=== PATIENT | female | born 1990 | race Caucasian/White ===

== ENCOUNTER 2023-08-03 10:42 | Outpatient (RCR) | payer OTHER, SELFPAY ==
[2023-08-03 11:43] VITALS: PULSE 84
== END 2023-11-01 23:59 | disposition home or self-care (01) ==
LOC: ANHOBOP 10:42
PROVIDERS: PCP Family Medicine; Visit Provider Obstetrics & Gynecology
DX: O36.8130 Decreased fetal movements, third trimester, not applicable or unspecified (principal); Z3A.36 36 weeks gestation of pregnancy
CPT/HCPCS: 59025

== ENCOUNTER 2023-08-09 05:25 | Inpatient (IN) | payer OTHER, SELFPAY ==
[2023-08-09] VITALS (155 sets, daily range): BP systolic 65–147; BP diastolic 33–99; PULSE 52–127; RESP 18; TEMP 36.1–36.9; O2SAT 93–100; BMI 53.9
[2023-08-09 06:12] LABS: Basophils Percent Auto 0.3 % (0.2-1.2); Eosinophils Absolute Auto 0.1 K/mm3 (0-0.3); Eosinophils Percent Auto 0.7 % (0-4.4); Hematocrit 40.8 % (37.0-47.0); Hemoglobin 13.2 g/dL (12.0-15.0); Immature Granulocyte Absolute 0.11 K/mm3 (0.00-0.031); Immature Granulocyte Percent A 0.9 % (0-0.5); Lymphocytes Absolute Auto 2.58 K/mm3 (0.9-3.2); Lymphocytes Percent Auto 20.5 % (18.3-44.2); Mean Corpuscular HGB Conc 32.4 g/dl (32-36); Mean Corpuscular Hemoglobin 29.9 pg (26-34); Mean Corpuscular Volume 92.5 fl (80-100); Mean Platelet Volume 10.8 fl (7.4-10.4); Monocytes Percent Auto 7.8 % (2.6-8.5); Neutrophils Absolute Auto 8.8 K/mm3 (1.3-6.7); Neutrophils Percent Auto 69.8 % (45.5-73.1); Platelet Count Result 250 k/mm3 (150-375); Red Blood Count 4.41 M/mm3 (4.2-5.4); Red Cell Distribution Width 14.3 % (11.5-14.5); White Blood Count 12.6 K/mm3 (4.5-10.0)
--- NOTE | 2023-08-09 06:20 | LDADM ---
This patient, Sera Euceda, was admitted to Labor/Delivery/Recovery 102 on 08/09/23 at 05:25. Plans for labor, pain management and were discussed with patient. Patient/family oriented to hospital policies and general routines including ID bracelet, bed and alarms, visiting hours, pain management, procedures, bathroom and other care routines, personal items, smoking policy, room service/diet and guest tray routines, security routines, and visiting hours. Patient/Family are encouraged to report perceived risks to care and to ask questions if they do not understand what they are told or what they should do. See OBIX for further documentation.
[2023-08-09] MEDS: AMPICILLIN 2 GM/NS 100 ML 2 GM/100 ML BAG IVPB (06:25)
[2023-08-09] MEDS: LACTATED RINGERS 1,000 ML 125 ML IV CONT ×3 (06:25→13:59)
[2023-08-09] MEDS: OXYTOCIN 30 UNITS/NS 500 ML 30 UNITS/500 ML BAG IV CONT (06:25)
[2023-08-09] MEDS: fentaNYL CITRATE INJ (*CRX) 100 MCG/2 ML VIAL 50 MCG IV PUSH (06:41)
--- NOTE | 2023-08-09 06:50 | PM.IMHP ---
H&P: HPI History of Present Illness Date/Time: 08/09/23 06:50 Chief Complaint: Her /hypertension /metabolic disorder Narrative: since 33-year-old 6 para 2 last menstrual period was November 1208/2022, EDC is 08/27/2023, confirmed OLIVERIO early visit who presents for induction of labor secondary to elevated blood pressures. has been complicated by history of 3 losses. She had 2 spontaneous vaginal deliveries. She takes levothyroxine baby aspirin and metformin. She passed her diabetic test but I would consider her a type 2 diabetic with metabolic syndrome secondary to PCOS. The pressures were elevated and she had been followed by Maternal- Medicine who felt she should be delivered in the 37th week. She is positive for group B strep Meds Home Medications and Allergies Home Medications Medication Instructions Recorded Confirmed Type levothyroxine 50 mcg tablet 50 mcg PO DAILY 08/03/23 08/09/23 History metformin 1,000 mg tablet 500 mg PO BID 08/03/23 08/09/23 History prenat.vits,amanda,[id number] 1 tablet PO DAILY 08/03/23 08/09/23 History Allergies Allergy/AdvReac Type Severity Reaction Status Date / Time No Known Allergies Allergy Verified 08/03/23 11:11 Vital Signs Vital Signs - 24 hr 08/09/23 05:47 08/09/23 05:48 08/09/23 06:07 Pulse Rate 127 H 106 H 112 H Blood Pressure 85/33 L 107/60 124/57 L Pulse Oximetry Oxygen Delivery 08/09/23 06:31 08/09/23 06:43 08/09/23 06:48 Pulse Rate 110 H Blood Pressure 118/90 Pulse Oximetry 96 99 Oxygen Delivery 08/09/23 06:18 Pulse Rate Blood Pressure Pulse Oximetry Oxygen Delivery Room Air Exam Const: General: cooperative, healthy appearing and comfortable Nutritional Appearance: obese Orientation/consciousness: oriented to person, oriented to place and oriented to time HENMT: Head: normal to inspection Chest: Chest palpation & inspection: normal inspection of the chest Resp: Effort & Inspection: normal respiratory effort Cardio: Rate: regular rate Rhythm: regular rhythm Heart sounds: S1 normal heart sound present and S2 normal heart sound present GI: Inspection: normal to inspection ( soft gravid uterus) and obesity : External Female Exam: normal external appearance Speculum Exam - Vagina: normal appearance of the vagina Speculum Exam - Cervix: normal appearance of the cervix ( cervix 2/50/2. Attempted a round but difficult secondary to patient inabi) and Other cervical findings present ( heart tones reassuring. Exam is difficult secondary to patient's d) H&P: Results Labs Labs: Short CBC 08/09/23 Range/Units 05:43 WBC 12.6 H (4.5-10.0) K/mm3 Hgb 13.2 (12.0-15.0) g/dL Hct 40.8 (37.0-47.0) % Plt Count 250 (150-375) k/mm3 Assessment and Plan Assessment and plan (1) Term : Code(s): Z34.90 - Encounter for supervision of normal , unspecified, unspecified trimester Status: Acute (2) Hypertension: Code(s): I10 - Essential (primary) hypertension Status: Acute (3) Metabolic disorder: Code(s): E88.9 - Metabolic disorder, unspecified Status: Acute Plan medical induction labor. Spontaneous vaginal delivery is expected. She has an epidural candidate
[2023-08-09 07:01] LABS: HIV 1/2 Ab P24 Ag Result Negative (Negative)
[2023-08-09] MEDS: fentaNYL CITRATE INJ (*CRX) 100 MCG/2 ML VIAL IV PUSH (08:28)
--- NOTE | 2023-08-09 09:26 | PM.OBPNLAB ---
Pain Control Date/time seen: 08/09/23 09:26 Pain control: tolerating well and epidural Pelvic Exam Dilation (cm): 4 Effacement (%): 75 station: -2 Amniotic membrane status: Leaking Contractions Monitor mode: Internal
[2023-08-09 09:32] LABS: Glucose Point of Care 116 mg/dl (65-105)
[2023-08-09] MEDS: AMPICILLIN 1 GM/NS 50 ML 1 GM/50 ML BAG IVPB (10:35)
--- NOTE | 2023-08-09 12:00 | PM.OBPNLAB ---
Pain Control Date/time seen: 08/09/23 12:00 Pain control: tolerating well and epidural Pelvic Exam Dilation (cm): 4 Effacement (%): 75 station: -2 Amniotic membrane status: Leaking Contractions Monitor mode: Internal
[2023-08-09 13:38] LABS: Glucose Point of Care 77 mg/dl (65-105)
--- NOTE | 2023-08-09 15:45 | PM.OBPRVD ---
OB - Vaginal Delivery Note Procedure Delivery date: 08/09/23 Events: Chronic Hypertension and Positive Group B Strep (GBS) Induction method: AROM Delivery augmentation: Pitocin Delivery monitor: External FHT and Internal Uterine Route of delivery: Episiotomy description: None Laceration Description: None Specimen: No Quantitative Blood Loss (ml): 161 Anesthesia type: Epidural Disposition: Floor Complications: No immediate complications Baby Date of : 08/09/23 Time of : 15:34 Weeks of gestation at delivery: 37 Infant gender: Male presentation: vertex position: Right Occiput Anterior Placenta delivery description: Spontaneous Cord Vessel Description: 3 Vessels and Delayed Cord Clamping score one minute: 8 score five minutes: 9 Narrative: amp x 2 for gbs
--- NOTE | 2023-08-09 15:48 | PM.DS ---
DS: Admitting Diagnosis Discharge Date 08/11/2023 Admitting Diagnosis Term / chronic hypertension/ group B strep DS: Discharge Diagnosis Discharge Diagnosis (1) Metabolic disorder: Code(s): E88.9 - Metabolic disorder, unspecified Status: Acute (2) Hypertension: Code(s): I10 - Essential (primary) hypertension Status: Acute (3) Term : Code(s): Z34.90 - Encounter for supervision of normal , unspecified, unspecified trimester Status: Acute DS: Summary Hospital Course Reason for hospitalization: patient was admitted for induction of labor at 37 and half weeks gestation secondary to elevated blood pressures Hospital Course: patient's hospital course unremarkable. She remained afebrile. She was up, voiding without difficulty, eating regular diet, ambulating, generally without complaints. Time Spent with Patient Time attestation: Total time spent providing and/or coordinating discharge services: Exam Const: General: cooperative, healthy appearing and comfortable Orientation/consciousness: oriented to place and oriented to time HENMT: Head: normal to inspection Resp: Effort & Inspection: normal respiratory effort Cardio: Rate: regular rate Rhythm: regular rhythm Heart sounds: S1 normal heart sound present and S2 normal heart sound present GI: Inspection: normal to inspection ( Uterus below the umbilicus) DS: Data Data Completed and Pending Labs on day of discharge: Labs from last 24 hours 08/09/23 08/09/23 08/09/23 13:36 09:29 05:43 WBC 12.6 H RBC 4.41 Hgb 13.2 Hct 40.8 MCV 92.5 MCH 29.9 MCHC 32.4 RDW 14.3 Plt Count 250 MPV 10.8 H Immature Gran % (Auto) 0.9 H Neut % (Auto) 69.8 Lymph % (Auto) 20.5 [place] % (Auto) 7.8 Eos % (Auto) 0.7 Baso % (Auto) 0.3 Lymph # (Auto) 2.58 [place] # (Auto) 1.0 H Eos # (Auto) 0.1 Baso # (Auto) 0.0 Abs Immat Gran (auto) 0.11 H Absolute Neuts (auto) 8.8 H Absolute Nucleated RBC 0.0 Nucleated RBC % 0.0 POC Capillary Glucose 77 116 H RPR Pending HIV 1&2 Ab/P24 Ag 4thGn Negative Blood Type O Positive Antibody Screen Negative Discharge Plan Discharge Attending physician on discharge: Kameron Yang Discharging Clinician: Kameron Yang Patient Disposition: Home, Self-Care Activity: may shower and pelvic rest Diet: heart healthy Wound Care Instructions: follow printed instructions Patient Instructions: Antibiotic Form Stand Alone Forms: General Discharge Information Follow-up/Referrals: Kameron Yang MD [Physician] - Discharge Medications: New hydrocodone-acetaminophen 5-325 mg tablet 1 tablet PO Q4H PRN (Reason: pain) Qty: 14 0RF Continued levothyroxine [Levothroid] 50 mcg Tablet 50 mcg PO DAILY metformin 1,000 mg Tablet 500 mg PO BID Vitamin Tablet 1 tablet PO DAILY Date of admission: 08/09/23 05:25 Primary Care Provider: Dennys,Yosi Lewis Admitting Provider: Kameron Yang Attending physician on admission: Kameron Yang Condition: Stable
[2023-08-09 15:56] LABS: Rapid Plasma Reagin Non-Reactive (NonReactive)
[2023-08-09] MEDS: OXYTOCIN 30 UNITS/NS 500 ML 30 UNITS/500 ML BAG 125 UNITS IV CONT (16:09)
[2023-08-09] MEDS: IBUPROFEN 600 MG TABLET PO (20:10)
[2023-08-09] MEDS: ACETAMINOPHEN 325 MG TABLET 650 MG PO (20:10)
[2023-08-09] MEDS: HYDROcodone/acetaminophen (*CRX) 5-325 MG TABLET 1 TAB PO (21:28)
[2023-08-10] MEDS: HYDROcodone/acetaminophen (*CRX) 5-325 MG TABLET 1 TAB PO ×4 (05:56→21:27)
[2023-08-10] MEDS: IBUPROFEN 600 MG TABLET PO ×3 (05:58→21:28)
[2023-08-10] MEDS: LEVOTHYROXINE SODIUM 50 MCG TABLET PO (05:58)
[2023-08-10 06:00] VITALS: BP 127/91; PULSE 83; RESP 18; O2SAT 97
--- NOTE | 2023-08-10 06:08 | P.PNOB_ITS ---
OB - PN: Subj Subjective Date/time seen: 08/10/23 06:08 Patient comments: no complaints and pain well controlled baby status: doing well OB - PN: Obj Data Labs 08/09/23 05:43 Labs: Laboratory Results - last 24 hr 08/09/23 08/09/23 08/09/23 05:43 09:29 13:36 WBC 12.6 H RBC 4.41 Hgb 13.2 Hct 40.8 MCV 92.5 MCH 29.9 MCHC 32.4 RDW 14.3 Plt Count 250 MPV 10.8 H Immature Gran % (Auto) 0.9 H Neut % (Auto) 69.8 Lymph % (Auto) 20.5 [place] % (Auto) 7.8 Eos % (Auto) 0.7 Baso % (Auto) 0.3 Lymph # (Auto) 2.58 [place] # (Auto) 1.0 H Eos # (Auto) 0.1 Baso # (Auto) 0.0 Abs Immat Gran (auto) 0.11 H Absolute Neuts (auto) 8.8 H Absolute Nucleated RBC 0.0 Nucleated RBC % 0.0 POC Capillary Glucose 116 H 77 RPR Non-reactive HIV 1&2 Ab/P24 Ag 4thGn Negative Blood Type O Positive Antibody Screen Negative OB - PN A/P Plan day: 1 Plan: routine care Time Spent With Patient Time: Total time spent is greater than 50% in coordination of care (as documented) at patient's floor/unit and/or counseling patient: Time with patient: less than 15 minutes Exam Const: General: cooperative, healthy appearing and comfortable Orientation/consciousness: oriented to person, oriented to place and oriented to time HENMT: Head: normal to inspection Resp: Effort & Inspection: normal respiratory effort Cardio: Rate: regular rate Rhythm: regular rhythm Heart sounds: S1 normal heart sound present and S2 normal heart sound present GI: Inspection: normal to inspection and incision (cdi)
[2023-08-10 07:29] LABS: Hematocrit 40.6 % (37.0-47.0); Hemoglobin 13.1 g/dL (12.0-15.0)
[2023-08-10 07:35] VITALS: BP 86/51; PULSE 58; RESP 18; TEMP 36.7; O2SAT 98
--- NOTE | 2023-08-10 08:00 | PC.NURSE ---
Breast pump provided due to mother asking to pump and bottlefeed. Discussed that we normally like to intitiate pumping within the first 6 hours of and that we are well past that, she can pump but her milk supply maybe delayed due to a delay in the pumping, she verbalized understanding. Instructions given on cleaning, care, usage, that there should be no pain, pumping schedule for milk production, collection, and storage of human milk. Patient was assessed for correct placement, flange size, to pump for comfort and nipple stretching/stimulation for adequate milk production every 3 hours (8 times in 24 hours) 1-2 times at night. Parents are encouraged to record the pumping schedule on the feeding sheet.?Mother voiced understanding of the education shared along with mom/baby guide and the pump measurement, flange fit handout for additional resource information.
[2023-08-10] MEDS: MULTIVIT/MIN/PREN/FOL AC/IRON TABLET 1 TAB PO (08:57)
[2023-08-10] MEDS: metFORMIN HCL 500 MG TABLET PO ×2 (08:58→17:08)
[2023-08-10 12:45] VITALS: BP 117/76; PULSE 83; RESP 16; TEMP 36.6; O2SAT 97
--- NOTE | 2023-08-10 13:34 | WPDANLDPN2 ---
Anes-Prog Note L&D Date/Time: 08/10/23 13:34 Comfortable throughout: labor and delivery Neuraxial method: epidural Epidural/Spinal procedure site: clean & non-tender Neuro status: Neuro function grossly intact. Cardiovascular status: normal Respiratory status: normal Airway patency: baseline Mental status: baseline Post-Op hydration status: normal Vital Signs: Last Vital Signs Temp 98.1 F 08/10/23 07:35 Pulse 58 L 08/10/23 07:35 Resp 18 08/10/23 07:35 BP 86/51 L 08/10/23 07:35 Pulse Ox 98 08/10/23 07:35 O2 Del Method Room Air 08/10/23 09:00 Pain score (VAS): 0/10 I/O: Intake & Output 08/09/23 08/10/23 08/10/23 23:59 07:59 15:59 Intake Total 500 550 Output Total 770 Balance 500 -220 Post-procedural complaints: none Patient feedback: Patient satisfied with anesthetic care.
--- NOTE | 2023-08-10 16:00 | PC.NURSE ---
PT introductions made and plan of care discussed per post , pain management, breast pumping, bottle feeding, daily care activities. PT and spouse both recipients of such instructions and no barriers to learning identified at this time. PT received such instructions per one to one discussion, mom baby care guide and demonstrations. this shift. PT verbalized understanding of such instructions.
--- NOTE | 2023-08-10 16:28 | PC.NURSE ---
[id number] Report received from Primary RN that bottle feeding mother requested a consult. Introductions were made and mother discussed her plan to bottle feed her infant and she had considered pumping to bottle feed, however; it is time consuming and she has other children. Mother is bottle feeding now. Breast pump provided earlier by Primary RN due to mothers request. Instructions given on cleaning, care, usage, that there should be no pain, pumping schedule for milk production, collection, and storage of human milk. Patient was not assessed for correct placement, flange size, and RN LC recommended patient to call when she pumps for evaluation. Encouraged mother to pump for comfort with no pain and nipple stretching/stimulation for adequate milk production every 3 hours (8 times in 24 hours) 1-2 times at night. Mother states she has pumped 4 times today. Reviewed how to build a good milk supply, maintain supply, the risks and how to prevent and treat infections that may occur with or without consistent pumping. Resources given to mother on how to contact services. Mother voiced understanding of the education and is undecided.
[2023-08-10] MEDS: SIMETHICONE 80 MG TAB.CHEW PO (17:08)
[2023-08-10] MEDS: DOCUSATE SODIUM 100 MG CAPSULE PO (17:09)
[2023-08-10 21:30] VITALS: BP 120/78; PULSE 83; RESP 18; TEMP 36.8; O2SAT 97
[2023-08-11] MEDS: LEVOTHYROXINE SODIUM 50 MCG TABLET PO (06:47)
--- NOTE | 2023-08-11 06:49 | PM.OBPNVD ---
OB - PN: Subj Subjective Date/time seen: 08/11/23 06:49 Patient comments: no complaints and pain well controlled baby status: doing well and nursing well OB - PN: Obj Data Labs 08/10/23 07:23 Labs: Laboratory Results - last 24 hr 08/10/23 07:23 Hgb 13.1 Hct 40.6 OB - PN A/P Plan day: 2 Plan: routine care, discharge home and follow up 6 weeks Time Spent With Patient Time: Total time spent is greater than 50% in coordination of care (as documented) at patient's floor/unit and/or counseling patient: Time with patient: less than 15 minutes Exam Const: General: cooperative, healthy appearing and comfortable Nutritional Appearance: average body habitus Orientation/consciousness: oriented to person, oriented to place and oriented to time HENMT: Head: normal to inspection Resp: Effort & Inspection: normal respiratory effort Cardio: Rate: regular rate Rhythm: regular rhythm Heart sounds: S1 normal heart sound present and S2 normal heart sound present GI: Inspection: normal to inspection
[2023-08-11] MEDS: ACETAMINOPHEN 325 MG TABLET 650 MG PO (07:05)
[2023-08-11] MEDS: IBUPROFEN 600 MG TABLET PO (07:05)
[2023-08-11 07:40] VITALS: BP 116/65; PULSE 74; RESP 16; TEMP 36.8; O2SAT 98
[2023-08-11] MEDS: MULTIVIT/MIN/PREN/FOL AC/IRON TABLET 1 TAB PO (09:08)
[2023-08-11] MEDS: metFORMIN HCL 500 MG TABLET PO (09:08)
[2023-08-11] MEDS: DOCUSATE SODIUM 100 MG CAPSULE PO (09:08)
[2023-08-11] MEDS: HYDROcodone/acetaminophen (*CRX) 5-325 MG TABLET 1 TAB PO (10:20)
== END 2023-08-11 11:45 | disposition home or self-care (01) | DRG 560 ==
LOC: ANHLDR 15:50 → ANHOB2 19:03
PROVIDERS: Admitting Provider Obstetrics & Gynecology; PCP Family Medicine; Visit Provider Obstetrics & Gynecology
DX: O10.92 Unspecified pre-existing hypertension complicating childbirth (principal); Z37.0 Single live birth; Z3A.37 37 weeks gestation of pregnancy; O99.284 Endocrine, nutritional and metabolic diseases complicating childbirth; E88.9 Metabolic disorder, unspecified; O24.429 Gestational diabetes mellitus in childbirth, unspecified control; O99.824 Streptococcus B carrier state complicating childbirth
CPT/HCPCS: 36415; 82948; 85014; 85018; 85025; 86592; 86703; 86850; 86900; 86901; A9270; G0432; J0290; J2590; J2795; J3010; J7120

== ENCOUNTER 2024-05-11 03:02 | Day surgery (SDC) | payer OTHER, SELFPAY ==
[2024-05-09 14:39] VITALS: BMI 55.4
--- NOTE | 2024-05-09 14:45 | PC.NURSE ---
Report to the Outpatient Waiting Room, entrance under the green pavilion located off [facility], at time _1pm_ on date _[id number]_. Planned Procedure Time: _3pm_.? Time changes happen often and if your time is changed the preop area will call you the afternoon before. - You and your visitor will be asked to self-screen and do not enter if you have any COVID symptoms. Please call surgeon if you need to reschedule. - A mask is optional within the hospital at this time. Patients may have clear liquids (water, carbonated beverages, clear teas, apple juice) until 3 hours prior to surgery with a maximum of 20 ounces. - No food from midnight until time of surgery and no smoking Take only the following medications with a SIP of water on the morning of surgery: __Levothyroxine and Nifedipine____ DO NOT STOP ANY OF YOUR OTHER PRESCRIPTION MEDICATIONS PRIOR TO SURGERY EXCEPT THE FOLLOWING Medications to discontinue per physician __Prenatal vitamin____ Date to take last dose__Stop now__ Please no make-up, nail trinidadian, hairspray, perfume, deodorant, or body powder the day of surgery.? No jewelry (including any body piercings) or valuables the day of surgery, leave them at home.? Please take a shower or bath the night before, or the morning of, surgery with an antibacterial soap.? Wear comfortable, loose fitting clothing.? - Jewelry must be removed prior to entering the operating room.? Rings and piercings that are not removed may be cut off. - The hospital will not accept responsibility for valuables.? - Please leave all valuables, including medications, at home the day of surgery. If you are going home after surgery, a licensed log truck driver must drive you home.? - NO public transportation without another adult if you receive anesthesia. - We recommend that an adult stay with you for 24 hours following discharge. - We also recommend that you do not drive, make important decision, drink alcoholic beverages, or take any drugs that were not prescribed by your health care provider for at least 24 hours after your discharge time. Follow any additional instructions given to you from your surgeon. Telephone instructions given to __Sera__and asked if any additional questions and then verbalized understanding. Patient advised to call surgeon office or pre surgery nurse liaison [phone] if any additional questions.
--- NOTE | 2024-05-10 06:47 | PM.IMHP ---
H&P: HPI History of Present Illness Date/Time: 05/10/24 06:47 Chief Complaint: First trimester blighted ovum Narrative: 34-year-old multiparous patient with a blighted ovum. She has had multiple blighted ovum some testing done on the products of conception. She has had 2 term pregnancies which were unremarkable risks and benefits of suction D&C review [facility] Family History Family History Grandparent Prostate carcinoma Diabetes mellitus Hypertension Social History Social History Smoking status: Never smoker Living arrangements: with family Spiritual care concerns: No Meds Home Medications and Allergies Home Medications Medication Instructions Recorded Confirmed Type levothyroxine 50 mcg tablet 50 mcg PO DAILY 08/03/23 05/09/24 History prenat.vits,amanda,[id number] 1 tablet PO DAILY 08/03/23 05/09/24 History nifedipine 30 mg tablet,extended 30 mg PO DAILY 05/09/24 05/09/24 History release 24 hr Allergies Allergy/AdvReac Type Severity Reaction Status Date / Time No Known Allergies Allergy Verified 05/09/24 14:38 Exam Const: General: cooperative, healthy appearing, comfortable and overweight Orientation/consciousness: oriented to person, oriented to place and oriented to time HENMT: Head: normal to inspection Resp: Effort & Inspection: normal respiratory effort Cardio: Rate: regular rate Rhythm: regular rhythm Heart sounds: S1 normal heart sound present and S2 normal heart sound present GI: Inspection: normal to inspection : External Female Exam: normal external appearance Speculum Exam - Vagina: normal appearance of the vagina Speculum Exam - Cervix: normal appearance of the cervix and Cervical os closed Bimanual exam- vagina & uterus: enlarged Bimanual Exam- Adnexa, other: normal adnexae Assessment and Plan Assessment and plan (1) Missed : Code(s): O02.1 - Missed Status: Acute Assessment and Plan: Suction dilatation curettage
--- NOTE | 2024-05-11 06:52 | WPDHPUPDATE1 ---
History and Physical Update Update Date/Time: 05/11/24 06:52 History and Physical has been reviewed, including an updated exam of the patient. There are NO changes in the patient's condition. Risks, benefits, and alternatives have been discussed and questions answered. Patient agrees to proceed with procedure.
[2024-05-11 09:05] VITALS: BP 129/70; PULSE 67; RESP 20; TEMP 36.2; O2SAT 100
[2024-05-11] MEDS: LACTATED RINGERS 1,000 ML 30 ML IV CONT (09:50)
[2024-05-11 10:01] LABS: Hematocrit 41.2 % (37.0-47.0); Hemoglobin 13.6 g/dL (12.0-15.0)
--- NOTE | 2024-05-11 10:11 | P.PNAN_ITS ---
Anes - Initial Pre Proc Eval Procedure: Operation Date: 05/11/24 11:15 Proposed Procedures p Suction Dilation and Curettage - Kameron Vogel MD Date/Time: 05/11/24 10:11 Surgeon: Kameron Vogel MD Pre Op Diagnosis: missed Ab Patient Data Age: 34 Gender: F Height: 1.71 m Weight: 163 kg Allergies Allergy/AdvReac Type Severity Reaction Status Date / Time No Known Allergies Allergy Verified 05/11/24 09:40 Home Medications Medication Instructions Recorded Confirmed Type levothyroxine 50 mcg tablet 50 mcg PO DAILY 08/03/23 05/11/24 History prenat.vits,amanda,[id number] 1 tablet PO DAILY 08/03/23 05/11/24 History nifedipine 30 mg tablet,extended 30 mg PO DAILY 05/09/24 05/11/24 History release 24 hr hydrocodone 5 mg-acetaminophen 325 1 tablet PO Q4H PRN pain #14 tabs 05/11/24 Rx mg tablet Laboratory Tests 05/11/24 09:47 Hgb 13.6 g/dL (12.0-15.0) Hct 41.2 % (37.0-47.0) Patient hx anesthesia problems: none Family hx anesthesia problems: none Results Review: All pre-operative results and documents have been reviewed as part of the pre- operative evaluation. [facility] Past Medical History Medical History (Updated 05/11/24 @ 10:11 by Kameron Aguilar MD) Missed Morbid obesity Family History Family History Grandparent Prostate carcinoma Diabetes mellitus Hypertension Social History Social History Smoking status: Never smoker Living arrangements: with family Spiritual care concerns: No Anes - Eval Final PreProcedure Day of Procedure 05/11/24 10:11 Patient weight: super morbidly obese Heart: regular rate and rhythm Lungs: clear to auscultation Airway: Mallampati scale class III Neurological: alert and oriented Last oral intake: >/= 8 hours ASA classification: III Emergent: no Anesthetic plan: proceed Anesthesia type and monitoring: general GIVS and standard monitoring Results Review: All pre-operative results and documents have been reviewed as part of the pre- operative evaluation. Informed Consent: The patient's anesthetic plan and its attendant risks and benefits were discussed with the patient/family/POA. Questions were solicited and answers provided to the satisfaction of the patient/family/POA.
[2024-05-11] MEDS: ACETAMINOPHEN 500 MG TABLET 1000 MG PO (10:33)
[2024-05-11] MEDS: LIDOCAINE HCL 1% LOCAL INJ 20 ML VIAL 10 ML INFILTRATE (10:50)
--- NOTE | 2024-05-11 11:00 | P.OP_ITS ---
Procedure Note - Detailed Date of Procedure 05/11/24 Pre-op Diagnosis missed Ab Post-op Diagnosis Same Procedure Performed Suction dilatation curettage Surgeon Kameron Vogel MD Anesthesia MAC and Local Indications this is 34-year-old female with 2 term deliveries in several missed abortions admitted for suction dilatation curettage Findings uterus sounded to 9cm. Tissue consistent with products conception was present. Description of Procedure The patient was prepped draped in the normal sterile fashion placed in the dorsal lithotomy position. Under excellent IV sedation weighted speculum placed in posterior fornix vagina. Anterior lip of the cervix grasped with single- tooth tenaculum. 2.5cc 1% xylocaine anesthesia placed at 2, 4, 8, 10:00 a.m. of the cervix. Uterus sounded to 10cm. Serial dilatation with fragmented dilators performed followed by passage of the 10. Suction curette. Moderate amount of tissue could be removed. With the instruments were the instruments withdrawn after a good grating sound was heard. Blood loss estimated 25cc. All sponge, needle, instrument counts were correct. There were no immediate complications and she did not require RhoGAM as she is Rh positive. This was sent for chromosomal analysis Estimated Blood Loss 25 Drains No Packing No Pathology Yes Complications No immediate complications Condition Stable Disposition PACU
[2024-05-11 11:02] VITALS: BP 137/85; PULSE 85; RESP 16; O2SAT 100
[2024-05-11 11:30] VITALS: BP 137/93; PULSE 64; RESP 16; O2SAT 100
[2024-05-11] MEDS: oxyCODONE HCL (*CRX) 5 MG TAB IR PO (11:41)
[2024-05-11 12:00] VITALS: BP 125/73; PULSE 57; RESP 16
== END 2024-05-11 12:13 | disposition home or self-care (01) ==
PROVIDERS: PCP Family Medicine; Visit Provider Obstetrics & Gynecology
PROC: (CPT 59820; principal; 2024-05-11 11:15)
DX: O02.1 Missed abortion (principal); Z79.891 Long term (current) use of opiate analgesic; Z80.42 Family history of malignant neoplasm of prostate
CPT/HCPCS: 59820; 36415; 85014; 85018; 88264; 88305; A9270; J1100; J2003; J2250; J2405; J2704; J3010; J7120